=== PATIENT | male | born 1955 | race Caucasian/White ===

== ENCOUNTER → 2016-10-31 | Outpatient (REF) | payer BC ==
[2016-10-31 18:16] LABS: ALBUMIN 3.9 GM/DL (3.2-5.2); ALKALINE PHOSPHATASE 66 U/L (45-117); ALT/SGPT 23 U/L (12-78); ANION GAP 9 MEQ/L (8-16); AST/SGOT 16 U/L (15-37); BILIRUBIN,TOTAL 0.4 MG/DL (0.2-1.0); BLOOD UREA NITROGEN 19 MG/DL (7-18); CALCIUM LEVEL 8.6 MG/DL (8.8-10.2); CARBON DIOXIDE LEVEL 28 MEQ/L (21-32); CHLORIDE LEVEL 107 MEQ/L (98-107); CREATININE FOR GFR 0.91 MG/DL (0.70-1.30); GLOMERULAR FILTRATION RATE > 60.0 (>49); GLUCOSE, FASTING 107 MG/DL (80-110); POTASSIUM SERUM 4.3 MEQ/L (3.5-5.1); SODIUM LEVEL 144 MEQ/L (136-145); TOTAL PROTEIN 6.9 GM/DL (6.4-8.2)
[2016-10-31 19:30] LABS: BASO # 0.1 K/mm3 (0.0-0.2); BASO % 0.7 % (0.0-1.0); EOS # 0.1 K/mm3 (0.0-0.50); EOS % 0.7 % (0.0-3.0); LARGE UNSTAINED CELL # 0.1 K/mm3 (0.0-0.4); LYMPH # 1.1 K/mm3 (1.5-4.5); MEAN CORPUSCULAR HEMOGLOBIN 31.5 pg (27.0-33.0); MEAN CORPUSCULAR HGB CONC 32.6 g/dl (32.0-36.5); MEAN CORPUSCULAR VOLUME 96.9 fl (80.0-96.0); MONO # 0.6 K/mm3 (0.0-0.8); MONO % 6.9 % (0.0-5.0); NEUTROPHILS # 6.7 K/mm3 (1.8-7.7); NEUTROPHILS % 78.7 % (36.0-66.0); PLATELET COUNT, AUTOMATED 298 k/mm3 (150-450); RED CELL DISTRIBUTION WIDTH 13.1 % (11.5-14.5); WHITE BLOOD COUNT 8.5 K/mm3 (4.0-10.0)
== END ==
LOC: M LAB REF 17:04
PROVIDERS: ATTEND Family Medicine
DX: E66.01 Morbid (severe) obesity due to excess calories (principal); R49.8 Other voice and resonance disorders; M06.9 Rheumatoid arthritis, unspecified

== ENCOUNTER → 2016-12-28 | Outpatient (REF) | payer BC ==
[2016-12-28 18:12] LABS: BASO # 0.1 K/mm3 (0.0-0.2); EOS # 0.1 K/mm3 (0.0-0.50); EOS % 1.2 % (0.0-3.0); LARGE UNSTAINED CELL # 0.1 K/mm3 (0.0-0.4); LARGE UNSTAINED CELL % 1.1 % (0.0-4.0); LYMPH # 1.1 K/mm3 (1.5-4.5); LYMPH % 14.1 % (24.0-44.0); MEAN CORPUSCULAR HGB CONC 32.2 g/dl (32.0-36.5); MEAN CORPUSCULAR VOLUME 96.5 fl (80.0-96.0); MONO # 0.4 K/mm3 (0.0-0.8); MONO % 5.7 % (0.0-5.0); NEUTROPHILS # 5.7 K/mm3 (1.8-7.7); NEUTROPHILS % 76.9 % (36.0-66.0); PLATELET COUNT, AUTOMATED 306 k/mm3 (150-450); RED CELL DISTRIBUTION WIDTH 13.1 % (11.5-14.5); WHITE BLOOD COUNT 7.4 K/mm3 (4.0-10.0)
[2016-12-28 18:34] LABS: ALBUMIN 3.8 GM/DL (3.2-5.2); ALBUMIN/GLOBULIN RATIO 1.36 (1.00-1.93); ALKALINE PHOSPHATASE 65 U/L (45-117); ALT/SGPT 29 U/L (12-78); ANION GAP 5 MEQ/L (8-16); AST/SGOT 20 U/L (15-37); BILIRUBIN,TOTAL 0.4 MG/DL (0.2-1.0); BLOOD UREA NITROGEN 17 MG/DL (7-18); CALCIUM LEVEL 8.3 MG/DL (8.8-10.2); CARBON DIOXIDE LEVEL 31 MEQ/L (21-32); CHLORIDE LEVEL 107 MEQ/L (98-107); CREATININE FOR GFR 0.82 MG/DL (0.70-1.30); GLOMERULAR FILTRATION RATE > 60.0 (>49); GLUCOSE, FASTING 119 MG/DL (80-110); POTASSIUM SERUM 4.5 MEQ/L (3.5-5.1); SODIUM LEVEL 143 MEQ/L (136-145); TOTAL PROTEIN 6.6 GM/DL (6.4-8.2)
== END ==
LOC: M LAB REF 16:42
PROVIDERS: ATTEND Family Medicine
DX: M06.9 Rheumatoid arthritis, unspecified (principal); I10 Essential (primary) hypertension

== ENCOUNTER → 2017-02-27 | Outpatient (REF) | payer BC ==
[2017-02-27 18:03] LABS: ALBUMIN 3.8 GM/DL (3.2-5.2); ALBUMIN/GLOBULIN RATIO 1.27 (1.00-1.93); ALKALINE PHOSPHATASE 65 U/L (45-117); ALT/SGPT 29 U/L (12-78); ANION GAP 6 MEQ/L (8-16); AST/SGOT 18 U/L (15-37); BILIRUBIN,TOTAL 0.4 MG/DL (0.2-1.0); BLOOD UREA NITROGEN 16 MG/DL (7-18); CALCIUM LEVEL 8.5 MG/DL (8.8-10.2); CARBON DIOXIDE LEVEL 29 MEQ/L (21-32); CHLORIDE LEVEL 105 MEQ/L (98-107); CREATININE FOR GFR 0.79 MG/DL (0.70-1.30); GLOMERULAR FILTRATION RATE > 60.0 (>49); GLUCOSE, FASTING 114 MG/DL (80-110); POTASSIUM SERUM 4.2 MEQ/L (3.5-5.1); SODIUM LEVEL 140 MEQ/L (136-145); TOTAL PROTEIN 6.8 GM/DL (6.4-8.2)
[2017-02-27 18:18] LABS: BASO # 0.1 K/mm3 (0.0-0.2); BASO % 0.8 % (0.0-1.0); EOS # 0.1 K/mm3 (0.0-0.50); EOS % 0.8 % (0.0-3.0); MEAN CORPUSCULAR HEMOGLOBIN 31.8 pg (27.0-33.0); MEAN CORPUSCULAR HGB CONC 32.9 g/dl (32.0-36.5); MEAN CORPUSCULAR VOLUME 96.7 fl (80.0-96.0); MONO # 0.5 K/mm3 (0.0-0.8); MONO % 5.9 % (0.0-5.0); NEUTROPHILS # 6.5 K/mm3 (1.8-7.7); NEUTROPHILS % 79.4 % (36.0-66.0); RED CELL DISTRIBUTION WIDTH 13.1 % (11.5-14.5); WHITE BLOOD COUNT 8.2 K/mm3 (4.0-10.0)
== END ==
LOC: M LAB REF 16:53
PROVIDERS: ATTEND Family Medicine
DX: E78.4 Other hyperlipidemia (principal); M06.9 Rheumatoid arthritis, unspecified

== ENCOUNTER → 2017-04-17 | Outpatient (CLI) | payer BC ==
--- NOTE | 2017-04-17 11:04 | REP ---
PA and lateral chest: Comparisons 11/14/2013. There is an incomplete inspiratory effort with mild under aeration of the lung bases. This is unchanged. There is a chronic stable linear scar inferiorly in the right lung, unchanged. Lung singh otherwise clear. Cardiac size is normal. The surya, mediastinum, and bony thorax are unremarkable. Impression: There are chronic stable findings. There are no new or acute cardiopulmonary findings. Signed by Luciano Mendoza MD 04/17/2017 10:55 A
== END ==
LOC: M SMT 10:17
PROVIDERS: ATTEND Internal Medicine Pulmonary Disease
DX: J45.40 Moderate persistent asthma, uncomplicated (principal)

== ENCOUNTER → 2017-05-01 | Outpatient (REF) | payer BC ==
[2017-05-01 18:38] LABS: BASO % 0.5 % (0.0-1.0); EOS # 0.1 K/mm3 (0.0-0.50); EOS % 0.8 % (0.0-3.0); LARGE UNSTAINED CELL # 0.1 K/mm3 (0.0-0.4); LYMPH # 1.1 K/mm3 (1.5-4.5); LYMPH % 11.4 % (24.0-44.0); MEAN CORPUSCULAR HGB CONC 32.6 g/dl (32.0-36.5); MEAN CORPUSCULAR VOLUME 98.1 fl (80.0-96.0); MONO # 0.5 K/mm3 (0.0-0.8); MONO % 5.5 % (0.0-5.0); NEUTROPHILS # 7.4 K/mm3 (1.8-7.7); NEUTROPHILS % 80.7 % (36.0-66.0); PLATELET COUNT, AUTOMATED 305 k/mm3 (150-450); RED CELL DISTRIBUTION WIDTH 13.3 % (11.5-14.5); WHITE BLOOD COUNT 9.2 K/mm3 (4.0-10.0)
[2017-05-01 20:28] LABS: ALBUMIN 3.8 GM/DL (3.2-5.2); ALBUMIN/GLOBULIN RATIO 1.31 (1.00-1.93); ALKALINE PHOSPHATASE 69 U/L (45-117); ALT/SGPT 28 U/L (12-78); ANION GAP 5 MEQ/L (8-16); AST/SGOT 17 U/L (15-37); BILIRUBIN,TOTAL 0.3 MG/DL (0.2-1.0); BLOOD UREA NITROGEN 15 MG/DL (7-18); CALCIUM LEVEL 8.7 MG/DL (8.8-10.2); CARBON DIOXIDE LEVEL 31 MEQ/L (21-32); CHLORIDE LEVEL 107 MEQ/L (98-107); CREATININE FOR GFR 0.76 MG/DL (0.70-1.30); GLOMERULAR FILTRATION RATE > 60.0 (>49); GLUCOSE, FASTING 117 MG/DL (80-110); POTASSIUM SERUM 4.6 MEQ/L (3.5-5.1); SODIUM LEVEL 143 MEQ/L (136-145); TOTAL PROTEIN 6.7 GM/DL (6.4-8.2)
== END ==
LOC: M LAB REF 08:54
PROVIDERS: ATTEND Family Medicine
DX: M51.9 Unspecified thoracic, thoracolumbar and lumbosacral intervertebral disc disorder (principal); R31.29 Other microscopic hematuria; M06.9 Rheumatoid arthritis, unspecified; I10 Essential (primary) hypertension

== ENCOUNTER → 2017-11-13 | Outpatient (REF) | payer BC ==
[2017-11-13 19:25] LABS: BASO # 0.1 10^3/uL (0.0-0.2); BASO % 0.8 % (0.0-1.0); EOS # 0.1 10^3/uL (0.0-0.50); EOS % 0.7 % (0.0-3.0); HEMATOCRIT 47.6 % (42.0-52.0); HEMOGLOBIN 15.3 g/dl (14.0-18.0); IMMATURE GRANULOCYTE % 0.3 % (0-3.0); LYMPH # 1.1 10^3/uL (1.5-4.5); LYMPH % 12.1 % (24.0-44.0); MEAN CORPUSCULAR HEMOGLOBIN 30.7 pg (27.0-33.0); MEAN CORPUSCULAR HGB CONC 32.1 g/dl (32.0-36.5); MEAN CORPUSCULAR VOLUME 95.6 fl (80.0-96.0); MONO # 0.6 10^3/uL (0.0-0.8); MONO % 6.4 % (0.0-5.0); NEUTROPHILS % 79.7 % (36.0-66.0); PLATELET COUNT, AUTOMATED 292 10^3/uL (150-450); RED BLOOD COUNT 4.98 10^6/uL (4.30-6.10); RED CELL DISTRIBUTION WIDTH 13.2 % (11.5-14.5); WHITE BLOOD COUNT 8.8 10^3/uL (4.0-10.0)
[2017-11-13 19:48] LABS: ALBUMIN 3.8 GM/DL (3.2-5.2); ALBUMIN/GLOBULIN RATIO 1.36 (1.00-1.93); ALKALINE PHOSPHATASE 63 U/L (45-117); ALT/SGPT 26 U/L (12-78); ANION GAP 4 MEQ/L (8-16); AST/SGOT 19 U/L (7-37); BILIRUBIN,TOTAL 0.3 MG/DL (0.2-1.0); BLOOD UREA NITROGEN 19 MG/DL (7-18); CALCIUM LEVEL 8.3 MG/DL (8.8-10.2); CARBON DIOXIDE LEVEL 31 MEQ/L (21-32); CHLORIDE LEVEL 107 MEQ/L (98-107); CREATININE FOR GFR 0.74 MG/DL (0.70-1.30); GLOMERULAR FILTRATION RATE > 60.0 (>49); GLUCOSE, FASTING 113 MG/DL (70-100); POTASSIUM SERUM 4.2 MEQ/L (3.5-5.1); SODIUM LEVEL 142 MEQ/L (136-145); TOTAL PROTEIN 6.6 GM/DL (6.4-8.2)
== END ==
LOC: M LAB REF 17:12
DX: M54.9 Dorsalgia, unspecified (principal); J47.1 Bronchiectasis with (acute) exacerbation; E78.4 Other hyperlipidemia; I10 Essential (primary) hypertension; M06.9 Rheumatoid arthritis, unspecified
CPT/HCPCS: 80053

== ENCOUNTER → 2018-01-17 | Outpatient (REF) | payer BC ==
[2018-01-17 18:02] LABS: ALBUMIN 3.8 GM/DL (3.2-5.2); ALBUMIN/GLOBULIN RATIO 1.27 (1.00-1.93); ALKALINE PHOSPHATASE 65 U/L (45-117); ALT/SGPT 27 U/L (12-78); ANION GAP 5 MEQ/L (8-16); AST/SGOT 21 U/L (7-37); BILIRUBIN,TOTAL 0.5 MG/DL (0.2-1.0); BLOOD UREA NITROGEN 15 MG/DL (7-18); CALCIUM LEVEL 8.4 MG/DL (8.8-10.2); CARBON DIOXIDE LEVEL 29 MEQ/L (21-32); CHLORIDE LEVEL 108 MEQ/L (98-107); CHOLESTEROL LEVEL 179 MG/DL (<200); CHOLESTEROL RISK RATIO 3.442 (<5); CREATININE FOR GFR 0.79 MG/DL (0.70-1.30); GLOMERULAR FILTRATION RATE > 60.0 (>49); GLUCOSE, FASTING 106 MG/DL (70-100); HDL CHOLESTEROL 52 MG/DL (>40); LDL CHOLESTEROL 111.8 MG/DL (<100); NON-HDL-C 127 MG/DL; POTASSIUM SERUM 4.4 MEQ/L (3.5-5.1); PROSTATIC SPECIFIC AG MONITOR 1.18 NG/ML (< 4.0); SODIUM LEVEL 142 MEQ/L (136-145); TOTAL PROTEIN 6.8 GM/DL (6.4-8.2); TRIGLYCERIDES LEVEL 76 MG/DL (<150)
[2018-01-17 18:05] LABS: BASO # 0.1 10^3/uL (0.0-0.2); BASO % 0.9 % (0.0-1.0); EOS # 0.1 10^3/uL (0.0-0.50); EOS % 1.1 % (0.0-3.0); HEMATOCRIT 48.5 % (42.0-52.0); HEMOGLOBIN 15.7 g/dl (13.5-17.5); IMMATURE GRANULOCYTE % 0.3 % (0-3.0); LYMPH # 1.2 10^3/uL (1.5-4.5); LYMPH % 15.5 % (24.0-44.0); MEAN CORPUSCULAR HGB CONC 32.4 g/dl (32.0-36.5); MEAN CORPUSCULAR VOLUME 95.7 fl (80.0-96.0); MONO # 0.5 10^3/uL (0.0-0.8); MONO % 6.8 % (0.0-5.0); NEUTROPHILS # 5.7 10^3/uL (1.8-7.7); NEUTROPHILS % 75.4 % (36.0-66.0); PLATELET COUNT, AUTOMATED 292 10^3/uL (150-450); RED BLOOD COUNT 5.07 10^6/uL (4.30-6.10); WHITE BLOOD COUNT 7.5 10^3/uL (4.0-10.0)
[2018-01-17 18:42] LABS: ESTIMATED AVERAGE GLUCOSE 137 MG/DL (60-110); HEMOGLOBIN A1c 6.4 %
== END ==
LOC: M LAB REF 16:42
DX: E78.4 Other hyperlipidemia (principal); E66.01 Morbid (severe) obesity due to excess calories; I27.0 Primary pulmonary hypertension; Z00.00 Encounter for general adult medical examination without abnormal findings; I10 Essential (primary) hypertension; M06.9 Rheumatoid arthritis, unspecified
CPT/HCPCS: 80053

== ENCOUNTER → 2018-03-19 | Outpatient (REF) | payer BC ==
[2018-03-19 19:32] LABS: BASO # 0.1 10^3/uL (0.0-0.2); BASO % 0.7 % (0.0-1.0); EOS # 0.1 10^3/uL (0.0-0.50); EOS % 0.7 % (0.0-3.0); HEMATOCRIT 49.6 % (42.0-52.0); HEMOGLOBIN 15.8 g/dl (13.5-17.5); IMMATURE GRANULOCYTE % 0.5 % (0-3.0); LYMPH % 11.4 % (24.0-44.0); MEAN CORPUSCULAR HEMOGLOBIN 30.8 pg (27.0-33.0); MEAN CORPUSCULAR HGB CONC 31.9 g/dl (32.0-36.5); MEAN CORPUSCULAR VOLUME 96.7 fl (80.0-96.0); MONO # 0.6 10^3/uL (0.0-0.8); MONO % 6.3 % (0.0-5.0); NEUTROPHILS % 80.4 % (36.0-66.0); PLATELET COUNT, AUTOMATED 304 10^3/uL (150-450); RED BLOOD COUNT 5.13 10^6/uL (4.30-6.10); RED CELL DISTRIBUTION WIDTH 13.6 % (11.5-14.5); WHITE BLOOD COUNT 8.7 10^3/uL (4.0-10.0)
[2018-03-19 20:11] LABS: ALBUMIN 3.7 GM/DL (3.2-5.2); ALBUMIN/GLOBULIN RATIO 1.19 (1.00-1.93); ALKALINE PHOSPHATASE 67 U/L (45-117); ALT/SGPT 29 U/L (12-78); ANION GAP 9 MEQ/L (8-16); AST/SGOT 18 U/L (7-37); BILIRUBIN,TOTAL 0.3 MG/DL (0.2-1.0); BLOOD UREA NITROGEN 19 MG/DL (7-18); CALCIUM LEVEL 8.5 MG/DL (8.8-10.2); CARBON DIOXIDE LEVEL 28 MEQ/L (21-32); CHLORIDE LEVEL 106 MEQ/L (98-107); CREATININE FOR GFR 0.78 MG/DL (0.70-1.30); GLOMERULAR FILTRATION RATE > 60.0 (>49); GLUCOSE, FASTING 118 MG/DL (70-100); POTASSIUM SERUM 4.2 MEQ/L (3.5-5.1); SODIUM LEVEL 143 MEQ/L (136-145); TOTAL PROTEIN 6.8 GM/DL (6.4-8.2)
== END ==
LOC: M LAB REF 19:05
DX: J47.9 Bronchiectasis, uncomplicated (principal); E78.4 Other hyperlipidemia; M06.9 Rheumatoid arthritis, unspecified; Z00.00 Encounter for general adult medical examination without abnormal findings; I10 Essential (primary) hypertension
CPT/HCPCS: 80053

== ENCOUNTER → 2018-05-18 | Outpatient (REF) | payer BC ==
[2018-05-18 19:38] LABS: ALBUMIN/GLOBULIN RATIO 1.38 (1.00-1.93); ALKALINE PHOSPHATASE 66 U/L (45-117); ALT/SGPT 27 U/L (12-78); ANION GAP 8 MEQ/L (8-16); AST/SGOT 18 U/L (7-37); BILIRUBIN,TOTAL 0.3 MG/DL (0.2-1.0); BLOOD UREA NITROGEN 18 MG/DL (7-18); CALCIUM LEVEL 8.8 MG/DL (8.8-10.2); CARBON DIOXIDE LEVEL 28 MEQ/L (21-32); CHLORIDE LEVEL 108 MEQ/L (98-107); CREATININE FOR GFR 0.78 MG/DL (0.70-1.30); GLOMERULAR FILTRATION RATE > 60.0 (>49); GLUCOSE, FASTING 108 MG/DL (70-100); POTASSIUM SERUM 4.4 MEQ/L (3.5-5.1); SODIUM LEVEL 144 MEQ/L (136-145); TOTAL PROTEIN 6.9 GM/DL (6.4-8.2)
[2018-05-18 19:44] LABS: BASO # 0.1 10^3/uL (0.0-0.2); BASO % 0.7 % (0.0-1.0); EOS # 0.1 10^3/uL (0.0-0.50); HEMATOCRIT 51.6 % (42.0-52.0); IMMATURE GRANULOCYTE % 0.5 % (0-3.0); LYMPH # 1.1 10^3/uL (1.5-4.5); LYMPH % 12.1 % (24.0-44.0); MEAN CORPUSCULAR HEMOGLOBIN 30.6 pg (27.0-33.0); MEAN CORPUSCULAR VOLUME 98.7 fl (80.0-96.0); MONO # 0.6 10^3/uL (0.0-0.8); MONO % 6.8 % (0.0-5.0); NEUTROPHILS # 6.9 10^3/uL (1.8-7.7); NEUTROPHILS % 78.9 % (36.0-66.0); PLATELET COUNT, AUTOMATED 285 10^3/uL (150-450); RED BLOOD COUNT 5.23 10^6/uL (4.30-6.10); WHITE BLOOD COUNT 8.7 10^3/uL (4.0-10.0)
== END ==
LOC: M LAB REF 17:28
DX: E66.01 Morbid (severe) obesity due to excess calories (principal); M06.9 Rheumatoid arthritis, unspecified; M54.30 Sciatica, unspecified side; I10 Essential (primary) hypertension
CPT/HCPCS: 80053

== ENCOUNTER → 2018-07-20 | Outpatient (REF) | payer BC ==
[2018-07-20 16:54] LABS: ALBUMIN 3.8 GM/DL (3.2-5.2); ALBUMIN/GLOBULIN RATIO 1.41 (1.00-1.93); ALKALINE PHOSPHATASE 64 U/L (45-117); ALT/SGPT 29 U/L (12-78); ANION GAP 6 MEQ/L (8-16); AST/SGOT 20 U/L (7-37); BILIRUBIN,TOTAL 0.4 MG/DL (0.2-1.0); BLOOD UREA NITROGEN 16 MG/DL (7-18); CALCIUM LEVEL 8.6 MG/DL (8.8-10.2); CARBON DIOXIDE LEVEL 30 MEQ/L (21-32); CHLORIDE LEVEL 107 MEQ/L (98-107); CREATININE FOR GFR 0.78 MG/DL (0.70-1.30); GLOMERULAR FILTRATION RATE > 60.0 (>49); GLUCOSE, FASTING 115 MG/DL (70-100); POTASSIUM SERUM 4.2 MEQ/L (3.5-5.1); SODIUM LEVEL 143 MEQ/L (136-145); TOTAL PROTEIN 6.5 GM/DL (6.4-8.2)
[2018-07-20 17:22] LABS: BASO # 0.1 10^3/uL (0.0-0.2); BASO % 0.9 % (0.0-1.0); EOS # 0.1 10^3/uL (0.0-0.50); EOS % 0.9 % (0.0-3.0); HEMATOCRIT 48.7 % (42.0-52.0); HEMOGLOBIN 15.7 g/dl (13.5-17.5); IMMATURE GRANULOCYTE % 0.4 % (0-3.0); LYMPH # 0.9 10^3/uL (1.5-4.5); MEAN CORPUSCULAR HEMOGLOBIN 30.9 pg (27.0-33.0); MEAN CORPUSCULAR HGB CONC 32.2 g/dl (32.0-36.5); MEAN CORPUSCULAR VOLUME 95.9 fl (80.0-96.0); MONO # 0.6 10^3/uL (0.0-0.8); MONO % 7.2 % (0.0-5.0); NEUTROPHILS # 6.5 10^3/uL (1.8-7.7); NEUTROPHILS % 79.6 % (36.0-66.0); PLATELET COUNT, AUTOMATED 288 10^3/uL (150-450); RED BLOOD COUNT 5.08 10^6/uL (4.30-6.10); RED CELL DISTRIBUTION WIDTH 13.5 % (11.5-14.5); WHITE BLOOD COUNT 8.2 10^3/uL (4.0-10.0)
== END ==
LOC: M LAB REF 16:18
DX: J84.10 Pulmonary fibrosis, unspecified (principal); M06.9 Rheumatoid arthritis, unspecified; I10 Essential (primary) hypertension

== ENCOUNTER → 2018-09-21 | Outpatient (REF) | payer BC ==
[2018-09-21 16:56] LABS: ALBUMIN 3.9 GM/DL (3.2-5.2); ALT/SGPT 25 U/L (12-78); BILIRUBIN,TOTAL 0.4 MG/DL (0.2-1.0); BLOOD UREA NITROGEN 17 MG/DL (7-18); CALCIUM LEVEL 8.8 MG/DL (8.8-10.2); CARBON DIOXIDE LEVEL 32 MEQ/L (21-32); CHLORIDE LEVEL 105 MEQ/L (98-107); CREATININE FOR GFR 0.81 MG/DL (0.70-1.30); GLOMERULAR FILTRATION RATE > 60.0 (>49); GLUCOSE, FASTING 112 MG/DL (70-100); POTASSIUM SERUM 4.7 MEQ/L (3.5-5.1); SODIUM LEVEL 140 MEQ/L (136-145); TOTAL PROTEIN 6.7 GM/DL (6.4-8.2)
[2018-09-21 16:58] LABS: BASO # 0.1 10^3/uL (0.0-0.2); EOS # 0.1 10^3/uL (0.0-0.50); EOS % 0.7 % (0.0-3.0); HEMATOCRIT 49.1 % (42.0-52.0); HEMOGLOBIN 15.5 g/dl (13.5-17.5); LYMPH % 13.7 % (24.0-44.0); MEAN CORPUSCULAR HEMOGLOBIN 30.6 pg (27.0-33.0); MEAN CORPUSCULAR HGB CONC 31.6 g/dl (32.0-36.5); MONO # 0.6 10^3/uL (0.0-0.8); MONO % 7.8 % (0.0-5.0); NEUTROPHILS # 5.6 10^3/uL (1.8-7.7); NEUTROPHILS % 76.1 % (36.0-66.0); PLATELET COUNT, AUTOMATED 292 10^3/uL (150-450); RED BLOOD COUNT 5.06 10^6/uL (4.30-6.10); WHITE BLOOD COUNT 7.3 10^3/uL (4.0-10.0)
== END ==
LOC: M LAB REF 16:26
PROVIDERS: ATTEND Family Medicine
DX: M51.9 Unspecified thoracic, thoracolumbar and lumbosacral intervertebral disc disorder (principal); J84.10 Pulmonary fibrosis, unspecified; M06.9 Rheumatoid arthritis, unspecified

== ENCOUNTER → 2018-11-19 | Outpatient (REF) | payer MEDICARE, BC ==
[2018-11-19 17:59] LABS: BASO # 0.1 10^3/uL (0.0-0.2); BASO % 0.8 % (0.0-1.0); EOS # 0.1 10^3/uL (0.0-0.50); EOS % 0.8 % (0.0-3.0); HEMATOCRIT 47.7 % (42.0-52.0); HEMOGLOBIN 15.3 g/dl (13.5-17.5); LYMPH # 1.2 10^3/uL (1.5-4.5); LYMPH % 13.3 % (24.0-44.0); MEAN CORPUSCULAR HEMOGLOBIN 30.6 pg (27.0-33.0); MEAN CORPUSCULAR HGB CONC 32.1 g/dl (32.0-36.5); MEAN CORPUSCULAR VOLUME 95.4 fl (80.0-96.0); MONO # 0.6 10^3/uL (0.0-0.8); MONO % 6.4 % (0.0-5.0); NEUTROPHILS # 7.3 10^3/uL (1.8-7.7); NEUTROPHILS % 78.3 % (36.0-66.0); PLATELET COUNT, AUTOMATED 288 10^3/uL (150-450); WHITE BLOOD COUNT 9.3 10^3/uL (4.0-10.0)
[2018-11-19 18:21] LABS: ALBUMIN 3.7 GM/DL (3.2-5.2); ALT/SGPT 24 U/L (12-78); BILIRUBIN,TOTAL 0.5 MG/DL (0.2-1.0); BLOOD UREA NITROGEN 16 MG/DL (7-18); CALCIUM LEVEL 8.1 MG/DL (8.8-10.2); CARBON DIOXIDE LEVEL 29 MEQ/L (21-32); CHLORIDE LEVEL 106 MEQ/L (98-107); CREATININE FOR GFR 0.75 MG/DL (0.70-1.30); GLOMERULAR FILTRATION RATE > 60.0 (>49); GLUCOSE, FASTING 106 MG/DL (70-100); POTASSIUM SERUM 4.1 MEQ/L (3.5-5.1); SODIUM LEVEL 141 MEQ/L (136-145); TOTAL PROTEIN 6.6 GM/DL (6.4-8.2)
== END ==
LOC: M LAB REF 17:10
PROVIDERS: ATTEND Family Medicine
DX: J47.9 Bronchiectasis, uncomplicated (principal); M06.9 Rheumatoid arthritis, unspecified; I10 Essential (primary) hypertension

== ENCOUNTER → 2019-01-21 | Outpatient (REF) | payer MEDICARE, BC ==
[2019-01-21 17:14] LABS: BASO # 0.1 10^3/uL (0.0-0.2); BASO % 0.9 % (0.0-1.0); EOS # 0.1 10^3/uL (0.0-0.50); HEMATOCRIT 48.7 % (42.0-52.0); HEMOGLOBIN 15.5 g/dl (13.5-17.5); LYMPH # 1.1 10^3/uL (1.5-4.5); MEAN CORPUSCULAR HEMOGLOBIN 30.6 pg (27.0-33.0); MEAN CORPUSCULAR HGB CONC 31.8 g/dl (32.0-36.5); MEAN CORPUSCULAR VOLUME 96.2 fl (80.0-96.0); MONO # 0.7 10^3/uL (0.0-0.8); MONO % 7.7 % (0.0-5.0); NEUTROPHILS # 6.7 10^3/uL (1.8-7.7); NEUTROPHILS % 76.9 % (36.0-66.0); PLATELET COUNT, AUTOMATED 297 10^3/uL (150-450); RED BLOOD COUNT 5.06 10^6/uL (4.30-6.10); WHITE BLOOD COUNT 8.7 10^3/uL (4.0-10.0)
[2019-01-21 17:15] LABS: ALBUMIN 3.9 GM/DL (3.2-5.2); ALT/SGPT 29 U/L (12-78); BILIRUBIN,TOTAL 0.3 MG/DL (0.2-1.0); BLOOD UREA NITROGEN 15 MG/DL (7-18); CALCIUM LEVEL 8.7 MG/DL (8.8-10.2); CARBON DIOXIDE LEVEL 31 MEQ/L (21-32); CHLORIDE LEVEL 107 MEQ/L (98-107); CREATININE FOR GFR 0.78 MG/DL (0.70-1.30); GLOMERULAR FILTRATION RATE > 60.0 (>49); GLUCOSE, FASTING 108 MG/DL (70-100); POTASSIUM SERUM 4.6 MEQ/L (3.5-5.1); SODIUM LEVEL 141 MEQ/L (136-145); TOTAL PROTEIN 6.8 GM/DL (6.4-8.2)
== END ==
LOC: M LAB REF 16:26
PROVIDERS: ATTEND Family Medicine
DX: M06.9 Rheumatoid arthritis, unspecified (principal)

== ENCOUNTER → 2019-03-25 | Outpatient (REF) | payer MEDICARE, BC ==
[2019-03-25 19:32] LABS: ALBUMIN 3.9 GM/DL (3.2-5.2); ALT/SGPT 27 U/L (12-78); BILIRUBIN,TOTAL 0.4 MG/DL (0.2-1.0); BLOOD UREA NITROGEN 17 MG/DL (7-18); C REACTIVE PROTEIN QUANTITATIV 0.31 MG/DL (0.00-0.30); CARBON DIOXIDE LEVEL 31 MEQ/L (21-32); CHLORIDE LEVEL 106 MEQ/L (98-107); CPK CREATINE PHOSPHOKINASE 139 U/L (39-308); CREATININE FOR GFR 0.83 MG/DL (0.70-1.30); GLOMERULAR FILTRATION RATE > 60.0 (>49); GLUCOSE, FASTING 120 MG/DL (70-100); POTASSIUM SERUM 4.4 MEQ/L (3.5-5.1); PROSTATIC SPECIFIC AG MONITOR 1.29 NG/ML (< 4.00); SODIUM LEVEL 141 MEQ/L (136-145); TOTAL PROTEIN 6.8 GM/DL (6.4-8.2)
[2019-03-25 20:27] LABS: BASO # 0.1 10^3/uL (0.0-0.2); BASO % 0.8 % (0.0-1.0); EOS # 0.1 10^3/uL (0.0-0.50); EOS % 0.6 % (0.0-3.0); HEMATOCRIT 48.5 % (42.0-52.0); HEMOGLOBIN 15.6 g/dl (13.5-17.5); LYMPH # 1.1 10^3/uL (1.5-4.5); LYMPH % 11.8 % (24.0-44.0); MEAN CORPUSCULAR HEMOGLOBIN 30.8 pg (27.0-33.0); MEAN CORPUSCULAR HGB CONC 32.2 g/dl (32.0-36.5); MEAN CORPUSCULAR VOLUME 95.8 fl (80.0-96.0); MONO # 0.6 10^3/uL (0.0-0.8); MONO % 6.2 % (0.0-5.0); NEUTROPHILS # 7.3 10^3/uL (1.8-7.7); PLATELET COUNT, AUTOMATED 325 10^3/uL (150-450); RED BLOOD COUNT 5.06 10^6/uL (4.30-6.10); WHITE BLOOD COUNT 9.1 10^3/uL (4.0-10.0)
== END ==
LOC: M LAB REF 17:42
PROVIDERS: ATTEND Family Medicine
DX: R31.9 Hematuria, unspecified (principal); M25.552 Pain in left hip; E88.81 Metabolic syndrome and other insulin resistance; M06.9 Rheumatoid arthritis, unspecified; R60.0 Localized edema

== ENCOUNTER → 2019-03-26 | Outpatient (CLI) | payer MEDICARE, BC ==
--- NOTE | 2019-03-26 11:23 | REP ---
Left hip two views: There are no comparisons. There is no fracture or dislocation. Mineralization and joint spaces are normal. There are no calcifications. There is an unusual linear density within the soft tissues laterally of uncertain significance, likely artifact indenting or clothing or possibly a foreign body. Impression: Negative left hip . Linear density in the soft tissues as described. Electronically Signed by Luciano Mendoza MD 03/26/2019 11:14 A
--- NOTE | 2019-03-26 12:54 | REP ---
Renal ultrasound for right flank pain and hematuria: The right kidney measures 14.06 x 3 x 5.2 cm. The left kidney measures 12.4 5.4 x 4.9 cm. The kidneys are normal size. Renal cortical echogenicity is normal bilaterally. There is mild bilateral pelviectasis. There are no renal calculi. There are no solid or cystic renal masses. The Doppler resistive index of the parenchymal arteries of the right kidney is 0.66 and left kidney 0.65. Bladder: With color Doppler assessment there are bilateral ureteral jets into the urinary bladder indicating there is no ureteral obstruction. The pre void bladder volume is one. 189 ml. No bladder wall polyps or masses are identified. Impression: There is bilateral mild renal pelviectasis, likely from the distended bladder. There are bilateral ureteral jets in the bladder indicating there is no ureteral obstruction. No renal calculi are identified. No renal solid or cystic masses are identified. No bladder polyps or masses are identified. Electronically Signed by Luciano Mendoza MD 03/26/2019 12:44 P
== END ==
LOC: M RAD 10:17
PROVIDERS: ATTEND Family Medicine
DX: M25.522 Pain in left elbow (principal); E88.81 Metabolic syndrome and other insulin resistance; M06.9 Rheumatoid arthritis, unspecified; R60.0 Localized edema

== ENCOUNTER → 2019-03-27 | Outpatient (REF) | payer MEDICARE, BC ==
[2019-03-27 12:52] LABS: TOTAL PROTEIN,RANDOM URINE 11.4 MG/DL (0.0-12.0)
== END ==
LOC: M LAB REF 11:04
PROVIDERS: ATTEND Family Medicine
DX: R31.9 Hematuria, unspecified (principal); M25.552 Pain in left hip; E88.81 Metabolic syndrome and other insulin resistance; M06.9 Rheumatoid arthritis, unspecified; R60.0 Localized edema

== ENCOUNTER → 2019-03-28 | Outpatient (REF) | payer MEDICARE, BC | LOC: M LAB REF 10:59 | PROVIDERS: ATTEND Family Medicine | DX: R31.9 Hematuria, unspecified (principal); M25.552 Pain in left hip; E88.81 Metabolic syndrome and other insulin resistance; M06.9 Rheumatoid arthritis, unspecified; R60.0 Localized edema ==

== ENCOUNTER → 2019-03-29 | Outpatient (REF) | payer MEDICARE, BC | LOC: M LAB REF 10:43 | PROVIDERS: ATTEND Family Medicine | DX: R31.9 Hematuria, unspecified (principal); M25.552 Pain in left hip; E88.81 Metabolic syndrome and other insulin resistance; M06.9 Rheumatoid arthritis, unspecified; R60.0 Localized edema ==

== ENCOUNTER → 2019-08-07 | Outpatient (REF) | payer MEDICARE, BC ==
[2019-08-07 16:38] LABS: BASO # 0.1 10^3/uL (0.0-0.2); BASO % 1.2 % (0.0-1.0); EOS # 0.1 10^3/uL (0.0-0.5); EOS % 0.9 % (0.0-3.0); HEMATOCRIT 46.1 % (42.0-52.0); HEMOGLOBIN 14.7 g/dl (13.5-17.5); LYMPH # 1.1 10^3/uL (1.5-5.0); LYMPH % 13.5 % (24.0-44.0); MEAN CORPUSCULAR HEMOGLOBIN 31.3 pg (27.0-33.0); MEAN CORPUSCULAR HGB CONC 31.9 g/dl (32.0-36.5); MEAN CORPUSCULAR VOLUME 98.1 fl (80.0-96.0); MONO # 0.6 10^3/uL (0.0-0.8); MONO % 7.9 % (0.0-5.0); NEUTROPHILS # 5.9 10^3/uL (1.5-8.5); NEUTROPHILS % 76.1 % (36.0-66.0); PLATELET COUNT, AUTOMATED 306 10^3/uL (150-450); WHITE BLOOD COUNT 7.8 10^3/uL (4.0-10.0)
[2019-08-07 16:44] LABS: ALBUMIN 3.8 GM/DL (3.2-5.2); ALT/SGPT 50 U/L (12-78); BILIRUBIN,TOTAL 0.5 MG/DL (0.2-1.0); BLOOD UREA NITROGEN 17 MG/DL (7-18); CALCIUM LEVEL 9.1 MG/DL (8.8-10.2); CARBON DIOXIDE LEVEL 29 MEQ/L (21-32); CHLORIDE LEVEL 106 MEQ/L (98-107); CREATININE FOR GFR 0.82 MG/DL (0.70-1.30); GLOMERULAR FILTRATION RATE > 60.0 (>49); GLUCOSE, FASTING 117 MG/DL (70-100); POTASSIUM SERUM 4.3 MEQ/L (3.5-5.1); SODIUM LEVEL 143 MEQ/L (136-145); TOTAL PROTEIN 6.9 GM/DL (6.4-8.2)
== END ==
LOC: M LAB REF 16:13
PROVIDERS: ATTEND Family Medicine
DX: J47.9 Bronchiectasis, uncomplicated (principal); M06.9 Rheumatoid arthritis, unspecified; R63.4 Abnormal weight loss

== ENCOUNTER → 2019-10-07 | Outpatient (REF) | payer MEDICARE, BC ==
[2019-10-07 18:29] LABS: BASO # 0.1 10^3/uL (0.0-0.2); BASO % 0.9 % (0.0-1.0); EOS # 0.1 10^3/uL (0.0-0.5); EOS % 1.1 % (0.0-3.0); HEMATOCRIT 49.7 % (42.0-52.0); HEMOGLOBIN 15.3 g/dl (13.5-17.5); LYMPH # 1.1 10^3/uL (1.5-5.0); LYMPH % 14.1 % (24.0-44.0); MEAN CORPUSCULAR HEMOGLOBIN 30.3 pg (27.0-33.0); MEAN CORPUSCULAR HGB CONC 30.8 g/dl (32.0-36.5); MEAN CORPUSCULAR VOLUME 98.4 fl (80.0-96.0); MONO # 0.5 10^3/uL (0.0-0.8); MONO % 7.1 % (0.0-5.0); NEUTROPHILS # 5.8 10^3/uL (1.5-8.5); NEUTROPHILS % 76.5 % (36.0-66.0); PLATELET COUNT, AUTOMATED 286 10^3/uL (150-450); RED BLOOD COUNT 5.05 10^6/uL (4.30-6.10); WHITE BLOOD COUNT 7.6 10^3/uL (4.0-10.0)
[2019-10-07 18:36] LABS: ALBUMIN 3.9 GM/DL (3.2-5.2); ALT/SGPT 23 U/L (12-78); BILIRUBIN,TOTAL 0.5 MG/DL (0.2-1.0); BLOOD UREA NITROGEN 18 MG/DL (7-18); CALCIUM LEVEL 9.3 MG/DL (8.8-10.2); CARBON DIOXIDE LEVEL 29 MEQ/L (21-32); CHLORIDE LEVEL 108 MEQ/L (98-107); CREATININE FOR GFR 0.75 MG/DL (0.70-1.30); GLOMERULAR FILTRATION RATE > 60.0 (>49); GLUCOSE, FASTING 114 MG/DL (70-100); SODIUM LEVEL 141 MEQ/L (136-145); TOTAL PROTEIN 6.7 GM/DL (6.4-8.2)
== END ==
LOC: M LAB REF 16:26
PROVIDERS: ATTEND Family Medicine
DX: E88.81 Metabolic syndrome and other insulin resistance (principal); M06.9 Rheumatoid arthritis, unspecified

== ENCOUNTER → 2023-02-21 | Outpatient (CLI) | payer MEDICARE, BC | LOC: M PLAIMG 09:57 | PROVIDERS: ATTEND Internal Medicine Pulmonary Disease | DX: J45.40 Moderate persistent asthma, uncomplicated (principal) ==

== ENCOUNTER → 2024-07-25 | Outpatient (CLI) | payer MEDICARE, BC | LOC: M PLALAB 10:15 | PROVIDERS: ATTEND Internal Medicine Pulmonary Disease | DX: J45.40 Moderate persistent asthma, uncomplicated (principal); J98.4 Other disorders of lung ==

== ENCOUNTER → 2025-07-16 | Outpatient (CLI) | payer MEDICARE, BC | LOC: M PLAIMG 10:56 | PROVIDERS: ATTEND Internal Medicine Pulmonary Disease | DX: J45.40 Moderate persistent asthma, uncomplicated (principal) ==